=== PATIENT | male | born 1935 | race Caucasian/White ===

== ENCOUNTER 2018-02-25 10:50 | Emergency (ER) | payer MEDICARE, BC ==
[2018-02-25] MEDS ORDERED: SODIUM CHLORIDE 0.9% 500 ML 500 ML IV ONE (11:04)
[2018-02-25 11:07] VITALS: BP 142/78; PULSE 64; RESP 17; TEMP 98.1
--- NOTE | 2018-02-25 11:28 | ED ---
General Adult HPI - General Chief complaint: Altered Mental Status Stated complaint: Mental Status Change Time Seen by Provider: 02/25/18 10:58 Source: EMS, RN notes reviewed, old records reviewed Mode of arrival: EMS Limitations: altered mental status - History of Present Illness Initial comments: 82-year-old male presents from care home or [facility] by EMS for evaluation of altered mental status. Patient has advanced dementia, he is not typically oriented, he is verbal and will respond. Staff report that today he was not responding appropriately. He was nonverbal. No preceding symptoms reported by staff. Patient was verbal at the time my evaluation although he did not respond appropriately to any questions. - Related Data Home Medications Medication Instructions Recorded Confirmed Donepezil [Aricept] 10 mg PO DAILY@0800 02/25/18 02/25/18 Memantine HCl [Namenda] 5 mg PO HS@199902/25/18 02/25/18 QUEtiapine [SEROquel] 25 mg PO HS@1700 02/25/18 02/25/18 Rosuvastatin [Crestor] 20 mg PO HS@199902/25/18 02/25/18 Sertraline [Zoloft] 100 mg PO HS@199902/25/18 02/25/18 amLODIPine [Norvasc] 2.5 mg PO DAILY@0800 02/25/18 02/25/18 busPIRone HCL 15 mg PO BID@08,21 02/25/18 02/25/18 traZODone HCL 50 mg PO HS@199902/25/18 02/25/18 Allergies Allergy/AdvReac Type Severity Reaction Status Date / Time No Known Allergies Allergy Verified 02/25/18 12:38 Review of Systems ROS Statement: Those systems with pertinent positive or pertinent negative responses have been documented in the HPI. ROS Other: All systems not noted in ROS Statement are negative. Past Medical History Past Medical History: Unable to Obtain Past Surgical History: Unable to Obtain Past Psychological History: Unable to Obtain Smoking Status: Unknown if ever smoked Past Alcohol Use History: None Reported, Unable to Obtain Past Drug Use History: Unable to Obtain General Exam Limitations: altered mental status General appearance: alert, in no apparent distress Head exam: Present: atraumatic, normocephalic Eye exam: Present: normal appearance, PERRL ENT exam: Present: normal exam Neck exam: Present: normal inspection. Absent: tenderness, meningismus Respiratory exam: Present: normal lung sounds bilaterally. Absent: respiratory distress, wheezes Cardiovascular Exam: Present: regular rate, normal rhythm, systolic murmur GI/Abdominal exam: Present: soft. Absent: distended, tenderness Extremities exam: Present: normal capillary refill, pedal edema (Pedal edema of the right foot). Absent: calf tenderness Neurological exam: Present: alert. Absent: oriented X3, motor sensory deficit Psychiatric exam: Present: normal affect, normal mood Skin exam: Present: warm, dry, intact. Absent: cyanosis, diaphoretic Course Vital Signs 02/25/18 10:58 Temperature 98.1 F Pulse Rate 64 Respiratory 17 Rate Blood Pressure 142/78 O2 Sat by Pulse 100 Oximetry Medical Decision Making - Medical Decision Making 82-year-old male with advanced dementia presenting for altered mental status. Initially patient is evaluated with no family available for the history. I did have an opportunity to talk with both the patient's and daughter. Initial workup including head CT which is negative for hemorrhage or mass effect no acute findings, chest x-ray negative for cardiopulmonary disease. CBC shows normal white blood cell count, stable hemoglobin, normal CMP, urinalysis is negative for infection. This workup is essentially negative. Patient does have some right lower extremity swelling, there is low suspicion for DVT although I do not see how this is contributing to his mental status changes. We discussed the possibility of obtaining an ultrasound and ultimately the 3 of us, his , his daughter and myself decided we would not obtain the study. We will try compression stockings and ambulation knowing that this may be a DVT and could potentially cause a PE. Patient's family does not want any further testing or evaluation at this time. Patient has advanced dementia and I think this is a reasonable plan. On reevaluation, patient is at baseline according to his and daughter. He will be discharged back to the [facility] home. They will improve mobility and ambulation, patient will wear compression stockings. They will return with worsening or changing symptoms. - Lab Data Result diagrams: 02/25/18 11:11 02/25/18 11:11 Lab Results 02/25/18 02/25/18 02/25/18 Range/Units 11:11 11:11 13:34 WBC 8.1 (3.8-10.6) k/uL RBC 4.27 L (4.30-5.90) m/uL Hgb 12.8 L (13.0-17.5) gm/dL Hct 37.8 L (39.0-53.0) % MCV 88.5 (80.0-100.0) fL MCH 30.0 (25.0-35.0) pg MCHC 33.8 (31.0-37.0) g/dL RDW 13.7 (11.5-15.5) % Plt Count 182 (150-450) k/uL Neutrophils % 87 % Lymphocytes % 6 % Monocytes % 6 % Eosinophils % 0 % Basophils % 0 % Neutrophils # 7.0 (1.3-7.7) k/uL Lymphocytes # 0.5 L (1.0-4.8) k/uL Monocytes # 0.5 (0-1.0) k/uL Eosinophils # 0.0 (0-0.7) k/uL Basophils # 0.0 (0-0.2) k/uL Sodium 142 (137-145) mmol/L Potassium 3.9 (3.5-5.1) mmol/L Chloride 105 (98-107) mmol/L Carbon Dioxide 25 (22-30) mmol/L Anion Gap 12 mmol/L BUN 23 H (9-20) mg/dL Creatinine 0.90 (0.66-1.25) mg/dL Est GFR (CKD-EPI)AfAm >90 (>60 ml/min/1.73 sqM) Est GFR (CKD-EPI)NonAf 80 (>60 ml/min/1.73 sqM) Glucose 105 H (74-99) mg/dL Calcium 8.9 (8.4-10.2) mg/dL Total Bilirubin 0.9 (0.2-1.3) mg/dL AST 39 (17-59) U/L ALT 38 (21-72) U/L Alkaline Phosphatase 71 (38-126) U/L Total Protein 7.0 (6.3-8.2) g/dL Albumin 3.7 (3.5-5.0) g/dL Urine Color Yellow Urine Appearance Clear (Clear) Urine pH 6.5 (5.0-8.0) Ur Specific [place] 1.018 (1.001-1.035) Urine Protein Trace H (Negative) Urine Glucose (UA) Negative (Negative) Urine Ketones Negative (Negative) Urine Blood Negative (Negative) Urine Nitrite Negative (Negative) Urine Bilirubin Negative (Negative) Urine Urobilinogen 6.0 (<2.0) mg/dL Ur Leukocyte Esterase Negative (Negative) Disposition Clinical Impression: Altered mental status, Dementia, Dehydration Disposition: HOME SELF-CARE Condition: Fair Instructions: Altered Mental Status (ED), Dehydration (ED) Additional Instructions: Please continue to ambulate, increased mobility, compression stockings to bilateral lower extremities. Please feel free to return with any new concerns. Is patient prescribed a controlled substance at d/c from ED?: No Referrals: Elmer Ng MD [Primary Care Provider] - 1-2 days Time of Disposition: 14:30
--- NOTE | 2018-02-25 12:18 | CT ---
EXAMINATION TYPE: CT brain wo con DATE OF EXAM: 02/25/2018 COMPARISON: NONE HISTORY: Mental status change CT DLP: 2228.6 mGycm Automated exposure control for dose reduction was used. FINDINGS: There are generalized changes of sulcal prominence and ventriculomegaly, compatible with atrophic gonzález nge. There is diffuse periventricular white matter lucency, compatible with chronic white matter isch emic change. There is vascular calcification in both vertebral arteries and carotid arteries. There is no acute focal lesion, mass effect or midline shift identified. I do not see evidence of int racranial blood. Visualized portions of the paranasal sinuses and mastoids are clear. The bony calvarium is intact. IMPRESSION: 1. NO ACUTE INTRACRANIAL ABNORMALITY. 2. DEGENERATIVE CHANGE.
[2018-02-25 12:19] LABS: Basophils % (A) 0 %; Eosinophils % (A) 0 %; HCT 37.8 % (39.0-53.0); HGB 12.8 gm/dL (13.0-17.5); Lymphocytes # (A) 0.5 k/uL (1.0-4.8); Lymphocytes % (A) 6 %; MCHC 33.8 g/dL (31.0-37.0); MCV 88.5 fL (80.0-100.0); Mean Platelet Volume 7.1; Monocytes # (A) 0.5 k/uL (0-1.0); Monocytes % (A) 6 %; Neutrophils % (A) 87 %; Platelet Count 182 k/uL (150-450); RBC 4.27 m/uL (4.30-5.90); RDW 13.7 % (11.5-15.5); WBC 8.1 k/uL (3.8-10.6)
--- NOTE | 2018-02-25 12:19 | XR ---
EXAMINATION TYPE: XR chest 2V DATE OF EXAM: 02/25/2018 HISTORY: altered mental status. REFERENCE: NONE. FINDINGS: There are senescent changes in the lungs. Lungs otherwise clear. Pleural spaces are clear. The heart is not enlarged. IMPRESSION: NO ACUTE INTRATHORACIC ABNORMALITY.
[2018-02-25 12:20] LABS: ALT 38 U/L (21-72); AST 39 U/L (17-59); Albumin 3.7 g/dL (3.5-5.0); Alkaline Phosphatase 71 U/L (38-126); Anion Gap 12 mmol/L; Blood Urea Nitrogen 23 mg/dL (9-20); Calcium 8.9 mg/dL (8.4-10.2); Carbon Dioxide 25 mmol/L (22-30); Chloride 105 mmol/L (98-107); Glucose 105 mg/dL (74-99); Potassium 3.9 mmol/L (3.5-5.1); Sodium 142 mmol/L (137-145); Total Bilirubin 0.9 mg/dL (0.2-1.3)
[2018-02-25 13:57] LABS: Appearance,Urine Clear (Clear); Bilirubin,Urine Negative (Negative); Blood,Urine Negative (Negative); Color,Urine Yellow; Glucose,Urine (UA) Negative (Negative); Ketones,Urine Negative (Negative); Leukocyte Esterase,Urine Negative (Negative); Nitrite,Urine Negative (Negative); PH, Urine 6.5 (5.0-8.0); Protein,Urine Trace (Negative); Specific Gravity,Urine 1.018 (1.001-1.035)
== END 2018-02-25 15:02 | disposition home or self-care (01) ==
LOC: EC 10:50 → EEVIPCON 10:50 → EC 15:02
DX: F03.90 Unspecified dementia, unspecified severity, without behavioral disturbance, psychotic disturbance, mood disturbance, and anxiety (principal); E86.0 Dehydration; R41.82 Altered mental status, unspecified; Z79.899 Other long term (current) drug therapy
CPT/HCPCS: 36415; 70450; 71046; 80053; 81003; 85025; 93005; 96360; 99285